=== PATIENT | male | born 1975 | race Hispanic/Latino ===

== ENCOUNTER 2017-07-25 20:30 | Emergency (ER) | payer BC ==
[2017-07-25] MEDS ORDERED: ONDANSETRON ODT 4 MG TAB ONE (21:30)
== END 2017-07-25 22:16 | disposition home or self-care (01) ==
LOC: EDH 20:30
DX: A08.4 Viral intestinal infection, unspecified (principal)

== ENCOUNTER 2017-08-21 17:58 | Emergency (ER) | payer BC ==
[2017-08-21] MEDS ORDERED: METHYLPREDNISOLONE SOD SUCC 125MG/2ML VIAL ONE (18:28)
[2017-08-21] MEDS ORDERED: IPRATROPIUM/ALBUTEROL SULFATE 3 ML SOLUTION IH ONE (18:34)
== END 2017-08-21 19:34 | disposition home or self-care (01) ==
LOC: EDH 17:58
DX: J20.9 Acute bronchitis, unspecified (principal)
CPT/HCPCS: 71046; 87804 ×2; 94640; 96372; 99285; J2930

== ENCOUNTER 2018-09-26 18:30 | Emergency (ER) | payer BC ==
[2018-09-26] MEDS ORDERED: GUAIFENESIN-CODEINE 5 ML SYRUP ONE (19:34)
[2018-09-26] MEDS ORDERED: BENZONATATE 100 MG CAPSULE PO ONE (19:34)
== END 2018-09-26 20:26 | disposition home or self-care (01) ==
LOC: EDH 18:30
DX: J06.9 Acute upper respiratory infection, unspecified (principal); E11.9 Type 2 diabetes mellitus without complications; E78.00 Pure hypercholesterolemia, unspecified
CPT/HCPCS: 71046; 87804

== ENCOUNTER 2019-07-15 18:17 | Emergency (ER) | payer BC, OTHER ==
[2019-07-15 18:34] LABS: APPEARANCE,URINE Cloudy (CLEAR); BILIRUBIN,URINE Negative (NEGATIVE); COLOR,URINE Yellow (YELLOW); GLUCOSE, URINE (UA) 500 mg/dL (NEGATIVE); KETONES,URINE Negative (NEGATIVE); LEUKOCYTE ESTERASE ,URINE Negative (NEGATIVE); NITRATE,URINE Negative (NEGATIVE); OCCULT BLOOD,URINE Large (NEGATIVE); PROTEIN,URINE POS 1+ mg/dL (NEGATIVE)
[2019-07-15] MEDS ORDERED: ONDANSETRON HCL 4 MG/2 ML VIAL ONE (18:42)
[2019-07-15] MEDS ORDERED: KETOROLAC TROMETHAMINE 30MG/ML ONE (18:42)
[2019-07-15 18:46] LABS: BASOPHILS % (AUTO) 0.4 % (0.0-5.0); EOSINOPHILS % (AUTO) 2.4 % (0.0-8.0); HEMATOCRIT 41.5 % (42-54); LYMPHOCYTES % (AUTO) 35.1 % (21.0-51.0); MEAN CORPUSCULAR HGB CONC 34.9 g/dL (32.0-36.0); MEAN CORPUSCULAR VOLUME 88.9 fL (79-99); MONOCYTES % (AUTO) 6.2 % (3.0-13.0); NEUTROPHILS % (AUTO) 55.4 % (40.0-77.0); PLATELET COUNT (AUTO) 171 K/uL (130-400); RED BLOOD CELL COUNT(AUTO) 4.67 MIL/uL (4.50-6.20); WHITE BLOOD COUNT (AUTO) 7.9 K/uL (4.8-10.8)
[2019-07-15 18:57] LABS: POTASSIUM 4.2 mmol/L (3.5-5.1)
[2019-07-15 19:01] LABS: ALBUMIN 4.2 g/dL (3.5-5.0); BILIRUBIN,TOTAL 0.5 mg/dL (0.2-1.0); TOTAL PROTEIN, SERUM 7.5 g/dL (6.0-8.3)
[2019-07-15 19:11] LABS: BACTERIA,URINE Few /HPF (None Seen); MUCUS,URINE Few LPF (None Seen); RBC,URINE 26-50 /HPF (0-1); SQUAMOUS EPITHELIAL CELL,UR 0-2 /HPF (0-2); WBC,URINE 0-1 /HPF (0-1)
[2019-07-15] MEDS ORDERED: MORPHINE SULFATE 4 MG/1ML SYG ONE (20:20)
== END 2019-07-15 21:14 | disposition home or self-care (01) ==
LOC: EDH 18:17
DX: N20.0 Calculus of kidney (principal); N28.89 Other specified disorders of kidney and ureter; R11.2 Nausea with vomiting, unspecified; E11.9 Type 2 diabetes mellitus without complications; E78.00 Pure hypercholesterolemia, unspecified
CPT/HCPCS: 36415; 74176; 80053; 81001; 83690; 85025; 96361; 96374; 96375; 99284; J1885; J2270; J2405

== ENCOUNTER 2019-10-10 22:52 | Emergency (ER) | payer BC ==
[2019-10-10 23:46] LABS: BASOPHILS % (AUTO) 0.6 % (0.0-5.0); EOSINOPHILS % (AUTO) 2.2 % (0.0-8.0); HEMATOCRIT 43.4 % (42-54); LYMPHOCYTES % (AUTO) 37.2 % (21.0-51.0); MEAN CORPUSCULAR HEMOGLOBIN 30.9 pg (27.0-33.0); MEAN CORPUSCULAR HGB CONC 35.5 g/dL (32.0-36.0); MEAN CORPUSCULAR VOLUME 87.1 fL (79-99); MONOCYTES % (AUTO) 7.5 % (3.0-13.0); NEUTROPHILS % (AUTO) 51.8 % (40.0-77.0); PLATELET COUNT (AUTO) 183 K/uL (130-400); RED BLOOD CELL COUNT(AUTO) 4.98 MIL/uL (4.50-6.20); RED CELL DISTRIBUTION WIDTH 12.4 % (11.0-15.5); WHITE BLOOD COUNT (AUTO) 9.4 K/uL (4.8-10.8)
[2019-10-11] LABS: INR 0.87 (0.85-1.15); PARTIAL THROMBOPLASTIN TIME 26.6 SEC (26.3-35.5); POTASSIUM 4.1 mmol/L (3.5-5.1); PROTHROMBIN TIME 9.4 SEC (9.6-11.6)
[2019-10-11 00:05] LABS: ALBUMIN 4.2 g/dL (3.5-5.0); BILIRUBIN,TOTAL 0.4 mg/dL (0.2-1.0); TOTAL PROTEIN, SERUM 8.1 g/dL (6.0-8.3)
== END 2019-10-11 04:27 | disposition home or self-care (01) ==
LOC: EDH 22:52
DX: U07.1 COVID-19 (principal); J20.9 Acute bronchitis, unspecified; E11.9 Type 2 diabetes mellitus without complications; E78.00 Pure hypercholesterolemia, unspecified; Z87.891 Personal history of nicotine dependence
CPT/HCPCS: 36415; 71045; 80053; 82550; 83605; 84484; 85025; 85378; 85610; 85730; 87040; 93005

== ENCOUNTER 2020-02-20 11:38 | Emergency (ER) | payer BC, OTHER ==
[2020-02-20 12:03] LABS: BASOPHILS % (AUTO) 0.3 % (0.0-5.0); EOSINOPHILS % (AUTO) 0.4 % (0.0-8.0); HEMATOCRIT 42.1 % (42-54); LYMPHOCYTES % (AUTO) 13.6 % (21.0-51.0); MEAN CORPUSCULAR HEMOGLOBIN 31.3 pg (27.0-33.0); MEAN CORPUSCULAR HGB CONC 35.4 g/dL (32.0-36.0); MEAN CORPUSCULAR VOLUME 88.4 fL (79-99); MONOCYTES % (AUTO) 7.3 % (3.0-13.0); NEUTROPHILS % (AUTO) 77.9 % (40.0-77.0); PLATELET COUNT (AUTO) 156 K/uL (130-400); RED BLOOD CELL COUNT(AUTO) 4.76 MIL/uL (4.50-6.20); RED CELL DISTRIBUTION WIDTH 12.2 % (11.0-15.5); WHITE BLOOD COUNT (AUTO) 11.6 K/uL (4.8-10.8)
[2020-02-20 12:19] LABS: CREATININE 1.1 mg/dL (0.5-1.5); POTASSIUM 3.5 mmol/L (3.5-5.1)
[2020-02-20 12:24] LABS: ALBUMIN 3.9 g/dL (3.5-5.0); BILIRUBIN,TOTAL 1.4 mg/dL (0.2-1.0); TOTAL PROTEIN, SERUM 8.2 g/dL (6.0-8.3)
[2020-02-20 12:29] LABS: APPEARANCE,URINE Cloudy (CLEAR); BILIRUBIN,URINE Small (NEGATIVE); COLOR,URINE Dark Yellow (YELLOW); GLUCOSE, URINE (UA) >=1000 mg/dL (NEGATIVE); KETONES,URINE 15 mg/dL (NEGATIVE); LEUKOCYTE ESTERASE ,URINE Small (NEGATIVE); NITRATE,URINE Negative (NEGATIVE); OCCULT BLOOD,URINE Large (NEGATIVE); PH,URINE 5.5 (5.0-8.0); PROTEIN,URINE 300 mg/dL (NEGATIVE)
[2020-02-20 12:34] LABS: BACTERIA,URINE Few /HPF (None Seen); MUCUS,URINE Few LPF (None Seen); SQUAMOUS EPITHELIAL CELL,UR 0-2 /HPF (0-2)
[2020-02-20] MEDS ORDERED: 0.9%NACL 1000ML 1,000 ML IV ONE (13:47)
[2020-02-20] MEDS ORDERED: CEFTRIAXONE 1G VIAL ONE (13:48)
[2020-02-20] MEDS ORDERED: PHENAZOPYRIDINE HCL 200 MG TABLET ONE (15:33)
== END 2020-02-20 16:49 | disposition home or self-care (01) ==
LOC: EDH 11:38
DX: N30.00 Acute cystitis without hematuria (principal); E11.65 Type 2 diabetes mellitus with hyperglycemia; R93.422 Abnormal radiologic findings on diagnostic imaging of left kidney; I10 Essential (primary) hypertension; E78.00 Pure hypercholesterolemia, unspecified; Z79.84 Long term (current) use of oral hypoglycemic drugs
CPT/HCPCS: 36415; 74176; 80053; 81001; 83605 ×2; 85025; 87077; 87088; 87186; 96365; 99284; J0696; J7030

== ENCOUNTER 2024-05-28 21:00 | Emergency (ER) | payer OTHER ==
[~2024-05-28] VITALS: Ht 165.1 cm; Wt 90.7 kg
[2024-05-28 21:14] VITALS: BP 134/84; PULSE 85; RESP 19; TEMP 98.4; O2SAT 98
--- NOTE | 2024-05-28 21:26 | ERN ---
ED Note History of Present Illness Stated Complaint: COUGH GENERAL BODY ACHES Chief Complaint: Cough Time Seen by MD: 21:08 Dictation: PATIENT IS A 49-YEAR-OLD MALE COMING IN WITH FLU-LIKE SYMPTOMS TO INCLUDE BODY ACHES, OCCASIONAL PRODUCTIVE COUGH WITH A YELLOW PHLEGM, SORE THROAT WITH PAINFUL SWALLOWING. SINUS CONGESTION ALSO IN FRONTAL HEADACHE. NO NAUSEA VOMITING NO DIARRHEA NO LOSS OF TASTE OR SMELL. STATES HIS WAS DIAGNOSED SEVERAL DAYS AGO WITH COVID-19. Allergies: Coded Allergies: No Known Drug Allergies (Unverified Allergy, Unknown, 09/26/18) Past Medical History Past Medical History: Diabetes-Type II, High Cholesterol Surgical History: None RN Note Reviewed/Agreed w/PFSH: Yes Review of System Dictation CONSTITUTIONAL: NEGATIVE EXCEPT FOR HPI FEVER CHILLS HEAD/FACE: NEGATIVE EXCEPT FOR HPI EENT: NEGATIVE EXCEPT FOR HPI FRONTAL HEADACHE WITH SORE THROAT RESPIRATORY: NEGATIVE EXCEPT FOR HPI PRODUCTIVE COUGH WITH YELLOW PHLEGM GASTROINTESTINAL/ABDOMINAL: NEGATIVE EXCEPT FOR HPI GENITOURINARY: NEGATIVE EXCEPT FOR HPI MUSCULOSKELETAL: NEGATIVE EXCEPT FOR HPI INTEGUMENTARY: NEGATIVE EXCEPT FOR HPI NEUROLOGICAL/PSYCH: NEGATIVE EXCEPT FOR HPI HEMATOLOGIC/LYMPHATIC: NEGATIVE EXCEPT FOR HPI ALL SYSTEMS NEGATIVE, EXCEPT NOTED ABOVE. 13 POINT REVIEW OF SYSTEMS ASSESSED AND ALL NEGATIVE EXCEPT FOR ABOVE. Initial Vital Sign VS Vital Signs Date Time Temp Pulse Resp B/P (MAP) Pulse Ox O2 Delivery O2 Flow Rate FiO2 05/28/24 21:03 98.4 98 19 134/85 98 Room Air 05/28/24 21:14 0 21 Physical Exam Dictation VITAL SIGNS REVIEWED GENERAL APPEARANCE: ALERT, ORIENTED X 3, MILD ACUTE DISTRESS, WELL DEVELOPED, NOURISHED. HEAD AND FACE: NON-TRAUMATIC. EYES: PERRL, PINK CONJUNCTIVAS, EYELID NO TRAUMA, ANTERIOR CHAMBER WITH ARCUS SENILIS. EARS: PINNAS INTACT AND NO SIGNS OF TRAUMA OR ERYTHEMA EAR CANALS CLEAR AND NO DISCHARGE TM NO ERYTHEMA NOSE: NO DISCHARGE, NO BLEEDING. OROPHARYNX: MOUTH NORMAL, TONGUE PINK, PHARYNX CLEAR, MODERATE PHARYNGEAL ERYTHEMA, TONSILS NO EXUDATES, NO ABSCESSES NOTED, MUCOUS MEMBRANE MOIST UVULA MIDLINE, VOICE IS CLEAR NECK: SUPPLE, NON-TENDER, NO THYROMEGALY, NO MASSES, NO JVD, NO BRUITS BREAST:DEFERRED CHEST:NO TENDERNESS, NO CREPITUS, NO PARADOXICAL MOVEMENT, NO RETRACTIONS LUNGS:CLEAR, WELL-VENTILATED, SYMMETRIC, NO RALES, NO WHEEZING, NO RHONCHI, NO STRIDOR, GOOD BREATH SOUNDS BILATERALLY HEART: REGULAR RATE, REGULAR RHYTHM, NO MURMUR, NO GALLOPS VASCULAR: NO PERIPHERAL EDEMA, ABDOMEN: SOFT, POSITIVE BOWEL SOUNDS, NONDISTENDED, NO GUARDING, NONTENDER, NO REBOUND, NO MASSES NO HEPATOMEGALY, NO SPLENOMEGALY, NO GALLEGOS'S SIGN, NO HERNIAS. RECTAL: DEFERRED GENITAL: DEFERRED NEUROLOGICAL: NORMAL SPEECH, MOTOR FUNCTION INTACT, SENSORY FUNCTION INTACT MUSCULOSKELETAL: NECK NONTENDER, FULL RANGE OF MOTION, BACK NONTENDER, FULL RANG E OF MOTION, EXTREMITIES: NONTENDER, FULL RANGE OF MOTION SKIN: COLOR PINK, DRY, NO TURGOR, NO RASH, NO LACERATIONS, NO ABRASIONS, NO CONTUSIONS. LYMPHATIC: DEFERRED Results (Laboratory/Radiology) Laboratory/Radiology Laboratory Tests Test 05/28/24 21:15 Influenza Type A Antigen Negative For Type A Influenza Type B Antigen Negative For Type B SARS-CoV-2 Antigen (Rapid) PRESUMPTIVE NEGATIVE Group A Streptococcus Rapid negative (NEGATIVE) Labs Reviewed?: Yes ED Course ED Course Orders Procedure Category Date Status Time Influenza Type A & B, LAB 05/28/24 Complete Rapid 21:09 Rapid (Group A Strep) LAB 05/28/24 Complete 21:09 Covid19 (Sars Antigen LAB 05/28/24 Complete Rapid) 21:09 Ibuprofen 800 Mg Tab PHA 05/28/24 Complete (Motrin) 21:30 Current Medications Medications (Trade) Dose Ordered Sig/Mari Route PRN Reason Start Time Stop Time Status Last Admin Dose Admin Ibuprofen (moTRIN) 800 mg ONCE ONCE PO 05/28/24 21:30 05/28/24 21:31 DC Vital Signs Date Time Temp Pulse Resp B/P (MAP) Pulse Ox O2 Delivery O2 Flow Rate FiO2 05/28/24 21:14 98.4 85 19 134/84 98 Room Air* 0 21 05/28/24 21:03 98.4 98 19 134/85 98 Room Air 2145/ALL LABS NEGATIVE PATIENT WILL BE TREATED EMPIRICALLY FOR ACUTE PHARYNGITIS UNSPECIFIED PRESCRIBED AZITHROMYCIN 500 Q.DAY FOR SEVEN DAYS TOLD SEE HIS PRIMARY CARE Medical Decision Making MDM MEDICAL DISCHARGE MAKING BASED ON SWABS FOR FLU COVID AND STREP ALL SWABS NEGATIVE TREATED WITH THE AZITHROMYCIN FOR ACUTE PHARYNGITIS UNSPECIFIED TOLD SEE HIS PRIMARY CARE DOCTOR DX & DISP Disposition: Discharge Departure Impression: Primary Impression: Acute pharyngitis, unspecified Additional Impression: Cough Condition: Stable Scripts Benzonatate (Tessalon Perles) 100 Mg Cap 200 MG PO TID for cough, #60 CAP 0 Refills Prov: RANJIT HAHN AUTOMATION CONTROLS SPECIALIST 05/28/24 Azithromycin (Zithromax Tri-Arsalan) 500 Mg Tablet 500 MG PO DAILY for 7 Days, #7 TAB Prov: RANJIT HAHN AUTOMATION CONTROLS SPECIALIST 05/28/24 Additional Instructions: Follow-up with primary care provider in 1 to 2 days. Take medications as directed here in the emergency room. Okay to continue home medications unless otherwise discussed during your visit in the emergency room today. Return to your nearest emergency room if symptoms worsen or if there is no improvement. Call 911 if you need immediate assistance. Take Tylenol or Motrin [id number] as needed and if no contraindications are present. Increase oral hydration. A wound culture or urine culture was ordered here in the emergency room department please follow-up with primary care provider and advise them to get repeat ports from our facility. If you had any Landon wrap/splints that were applied here, please do not remove them until you see your primary care or specialty. Take antibiotics daily as directed until gone. Increase your water intake. Take Tessalon as needed for cough and see your primary care doctor for follow up Referrals: MIKE PAREDES MD (PCP) Time of Disposition: 21:47 I have reviewed the case, and I agree with, Diagnosis and Plan RANJIT HAHN NP May 28, 2024 21:26
[2024-05-28 21:33] LABS: RAPID GROUP A STREP negative (NEGATIVE)
[2024-05-28 21:43] LABS: COVID19 (SARS ANTIGEN RAPID) PRESUMPTIVE NEGATIVE (NEGATIVE); INFLUENZA TYPE A Negative For Type A (NEGATIVE); INFLUENZA TYPE B Negative For Type B (NEGATIVE)
[2024-05-28] MEDS ORDERED: AZIT500T2 PO (21:48)
[2024-05-28] MEDS ORDERED: BENZ-39 PO (21:48)
[2024-05-28] MEDS: ibuPROFEN 800 MG TAB PO ONE (21:58)
== END 2024-05-28 22:04 | disposition home or self-care (01) ==
LOC: EDH 21:00
DX: J02.9 Acute pharyngitis, unspecified (principal); R05.9 Cough, unspecified; E11.9 Type 2 diabetes mellitus without complications; E78.00 Pure hypercholesterolemia, unspecified; Z20.822 Contact with and (suspected) exposure to COVID-19
CPT/HCPCS: 87426; 87804; 87880; 99283

== ENCOUNTER 2024-11-28 14:03 | Emergency (ER) | payer BC, OTHER ==
[~2024-11-28] VITALS: Ht 162.6 cm; Wt 88.9 kg
[~2024-11-28 14:03] MED LIST: AZIT500T2 PO; BENZ-39 PO
--- NOTE | 2024-11-28 15:55 | HMCIMG ---
EXAM: CR right Hand, 3 View. CLINICAL HISTORY: injury COMPARISON: None provided. FINDINGS: BONES: No acute fracture or aggressive appearing osseous lesion. Chronic appearing deformity neck of the fifth metacarpal bone JOINTS: No evidence of dislocation. The joint spaces are normal. SOFT TISSUES: The soft tissues appear within normal limits. No radiopaque foreign body is seen. IMPRESSION: No acute pathology evident. No acute fracture or dislocation. /Anderson
[2024-11-28] MEDS ORDERED: NAPR-1196 PO (16:13)
--- NOTE | 2024-11-28 16:13 | ERN ---
ED Note History of Present Illness Stated Complaint: RIGHT HAND PAIN Chief Complaint: Hand Problem/Injury Time Seen by MD: 14:06 Dictation: 49-year-old male with her right hand pain worse over the past few days patient reports chronic pain but no recent injury. Said he wrapped it for the past few days but has not improved Allergies: Coded Allergies: No Known Drug Allergies (Unverified Allergy, Unknown, 09/26/18) Home Meds Active Scripts Benzonatate (Tessalon Perles) 100 Mg Cap, 200 MG PO TID for cough, #60 CAP 0 Refills Prov:RANJIT HAHN FACILITIES DIRECTOR 05/28/24 Azithromycin (Zithromax Tri-Arsalan) 500 Mg Tablet, 500 MG PO DAILY for 7 Days, #7 TAB Prov:RANJIT HAHN FACILITIES DIRECTOR 05/28/24 Past Medical History Past Medical History: Diabetes-Type II, High Cholesterol Surgical History: None Review of System Dictation Constitutional: Negative for fever,chills, and weight loss Eyes: Negative for injury, pain,redness, and discharge ENT: Negative for injury,pain or swelling Cardiovascular: Negative for chest pain, palpitations, and edema Respiratory: Negative for shortness of breath, cough, and wheezing, Abdomen/GI: Negative for abdominal pain, nausea, vomiting, diarrhea, and constipation Back: Negative for injury and pain : Negative for injury, bleeding and discharge MS/Extremity: Per HPI Skin: Negative for rash, and discoloration Neuro: Negative for headache, weakness, numbness, tingling, and seizure Psych: Negative for suicide ideation, homicidal ideation, and hallucinations Initial Vital Sign VS Vital Signs Date Time Temp Pulse Resp B/P (MAP) Pulse Ox O2 Delivery O2 Flow Rate FiO2 11/28/24 14:04 98.6 91 18 121/85 97 Room Air Physical Exam Dictation General: awake, alert, NAD Head/Face: Normocephalic, atraumatic Eyes: PERRL, EOMI, vision at baseline ENT: oral cavity clear, TMs clear, no signs of infection Neck: Trachea midline, supple, no nuchal rigidity Cardiovascular: RRR, normal S1/S2, No MRGs, no JVD Respiratory: CTAB, no respiratory distress, No rales or wheezes Abdomen: Soft, non-tender, non-distended, normal bowel sounds, no guarding or rebound. Skin: Warm, dry, normal turgor, no rash MS/Extremity: Pulses equal, no cyanosis, neurovascular intact, FROM, right and no signs of infection full range of motion extensor and flexor tendon intact Neuro: COAx4, GCS 15, strength 5/5, CN 2-12 intact, normal cerebellar exam, normal gait, Psych: Normal behavior, mood, and affect normal ED Course ED Course Orders Procedure Category Date Status Time Hand 3+Vws Rt RAD 11/28/24 Resulted 14:18 Ketorolac PHA 11/28/24 Complete Tromethamine 15mg/Ml 15:00 Current Medications Medications (Trade) Dose Ordered Sig/Mari Route PRN Reason Start Time Stop Time Status Last Admin Dose Admin Ketorolac Tromethamine (toRADol) 15 mg ONCE ONCE IM 11/28/24 15:00 11/28/24 15:01 DC Vital Signs Date Time Temp Pulse Resp B/P (MAP) Pulse Ox O2 Delivery O2 Flow Rate FiO2 11/28/24 14:04 98.6 91 18 121/85 97 Room Air Medical Decision Making MDM MDM: Differential diagnosis: Rationale: Tests considered and ordered secondary to shared decision making include: Previous outside records reviewed: Old ER visits. Risk of complication and/or morbidity or mortality of patient management: None Medications-Per medication reconciliation Need for hospitalization: Patient does not meet criteria for hospitalization. Need for emergency major/minor surgery: No There are no social concerns with this patient. Prescription drug management Prescriptions will include symptomatic care Patient's prior external medical records from other ER visits were reviewed by me as indicated. Prior testing and results from previous visits were reviewed. Prior tests were taken into account with medical decision making and resource utilization, independent historian/historians were used to obtain complete medical history. I independently interpreted the test that were performed, results were reviewed by me and considered findings on radiology if ordered. Medical management and examination interpretation discussions were had by me with other qualified healthcare professionals as indicated for the patient's care. 49-year-old with right hand sprain stable for discharge x-ray stable no signs of infection prescriptions given DX & DISP Disposition: Discharge Departure Impression: Primary Impression: Sprain of right hand Condition: Stable Scripts Naproxen (Naproxen) 250 Mg Tablet 250 MG PO BID for 5 Days, #10 TAB Prov: HARPAL HAYS MD 11/28/24 Referrals: MIKE PAREDES MD (PCP) HARPAL HAYS MD Nov 28, 2024 16:13
[2024-11-28 16:20] VITALS: BP 128/65; PULSE 85; RESP 16; TEMP 98.3; O2SAT 98
== END 2024-11-28 16:56 | disposition home or self-care (01) ==
LOC: EDH 14:03
DX: S63.91XA Sprain of unspecified part of right wrist and hand, initial encounter (principal); E11.9 Type 2 diabetes mellitus without complications; E78.00 Pure hypercholesterolemia, unspecified; X58.XXXA Exposure to other specified factors, initial encounter; Y93.89 Activity, other specified; Y92.89 Other specified places as the place of occurrence of the external cause; Y99.8 Other external cause status
CPT/HCPCS: 99284; 73130; 96372; J1885

== ENCOUNTER 2025-02-22 23:35 | Emergency (ER) | payer BC ==
[~2025-02-22] VITALS: Ht 157.5 cm; Wt 90.7 kg
[~2025-02-22 23:35] MED LIST changes: +NAPR-1196 PO
[2025-02-23 00:06] LABS: RAPID GROUP A STREP negative (NEGATIVE)
[2025-02-23 00:08] LABS: SARS-CoV-2, RNA, NAAT NEGATIVE SARS CoV-2 (NEGATIVE)
[2025-02-23 00:13] LABS: INFLUENZA TYPE A Negative For Type A (NEGATIVE); INFLUENZA TYPE B Negative For Type B (NEGATIVE)
--- NOTE | 2025-02-23 00:14 | ERN ---
ED Note History of Present Illness Stated Complaint: FEVER, RUNNY NOSE, COUGH, HEADACHE Chief Complaint: Multiple Complaints Time Seen by MD: 23:41 Time Seen by Midlevel: 23:41 Dictation: The patient is a 49 year history of diabetes, hyperlipidemia who presents to the emergency department with complaints of productive cough, runny nose, nausea onset Wednesday. Patient denies any fevers, chest pain or shortness of breath. Denies any abdominal pain vomiting or diarrhea. Allergies: Coded Allergies: No Known Drug Allergies (Unverified Allergy, Unknown, 09/26/18) Home Meds Active Scripts Naproxen (Naproxen) 250 Mg Tablet, 250 MG PO BID for 5 Days, #10 TAB Prov:HARPAL HAYS MD 11/28/24 Benzonatate (Tessalon Perles) 100 Mg Cap, 200 MG PO TID for cough, #60 CAP 0 Refills Prov:RANJIT HAHNP 05/28/24 Azithromycin (Zithromax Tri-Arsalan) 500 Mg Tablet, 500 MG PO DAILY for 7 Days, #7 TAB Prov:RANJIT HAHN SUPERVISOR LOCOMOTIVE 05/28/24 Past Medical History Past Medical History: Diabetes-Type II, High Cholesterol Surgical History: None RN Note Reviewed/Agreed w/PFSH: Yes Review of System Dictation Constitutional: Negative for fever,chills, and weight loss Eyes: Negative for injury, pain,redness, and discharge ENT: Negative for injury,pain or swelling positive for nasal congestion Cardiovascular: Negative for chest pain, palpitations, and edema Respiratory: Negative for shortness of breath, and wheezing, positive for cough Abdomen/GI: Negative for abdominal pain, vomiting, diarrhea, and constipation positive for nausea Back: Negative for injury and pain : Negative for injury, bleeding and discharge MS/Extremity: Negative for injury and deformity Skin: Negative for rash, and discoloration Neuro: Negative for weakness, numbness, tingling, and seizure positive for headache Psych: Negative for suicide ideation, homicidal ideation, and hallucinations Initial Vital Sign VS Vital Signs Date Time Temp Pulse Resp B/P (MAP) Pulse Ox O2 Delivery O2 Flow Rate FiO2 02/22/25 23:37 97.2 84 20 122/75 97 Room Air 0 02/23/25 01:12 21 Physical Exam Dictation Vital Signs reviewed General Appearance: Alert, oriented x 3, no acute distress, well developed, nourished. Head and Face: non-traumatic. Eyes: PERRL, pink conjunctivas, eyelid no trauma, anterior chamber with arcus senilis. Ears: Pinnas intact and no signs of trauma or erythema ear canals clear and no discharge TM no erythema Nose: No discharge, no bleeding. Oropharynx: Mouth normal, tongue pink. pharynx clear,no erythema, tonsils no exudates, no abscesses noted, mucous membrane moist Neck: Supple, non-tender, no thyromegaly, no masses, no JVD, no bruits Breast:Deferred Chest:No tenderness, no crepitus, no paradoxical movement, no retractions Lungs:Clear, well-ventilated, symmetric, no rales, no wheezing, no rhonchi, no stridor, good breath sounds bilaterally Heart: Regular rate, regular rhythm, no murmur, no gallops Vascular: no peripheral edema, Abdomen: Soft, positive bowel sounds, nondistended, no guarding, nontender, no rebound, no masses no hepatomegaly, no splenomegaly, no Sena's sign, no hernias. Rectal: Deferred Genital: Deferred Neurological: Normal speech, motor function intact, sensory function intact Musculoskeletal: Neck nontender, full range of motion, back nontender, full range of motion, Extremities: nontender, full range of motion Skin: Color pink, dry, no turgor, no rash, no lacerations, no abrasions, no contusions. Lymphatic: Deferred Results (Laboratory/Radiology) Laboratory/Radiology Laboratory Tests Test 02/22/25 23:45 02/23/25 00:18 Influenza Type A Antigen Negative For Type A Influenza Type B Antigen Negative For Type B SARS-CoV-2, RNA, NAAT NEGATIVE SARS CoV-2 Group A Streptococcus Rapid negative (NEGATIVE) White Blood Count 10.4 K/uL (4.8-10.8) Red Blood Count 4.65 MIL/uL (4.50-6.20) Hemoglobin 14.8 g/dL (14.0-18.0) Hematocrit 41.8 % (42-54) L Mean Corpuscular Volume 89.9 fL (79-99) Mean Corpuscular Hemoglobin 31.8 pg (27.0-33.0) Mean Corpuscular Hemoglobin Concent 35.4 g/dL (32.0-36.0) Red Cell Distribution Width 12.3 % (11.0-15.5) Platelet Count 183 K/uL (130-400) Mean Platelet Volume 9.9 fL (7.5-10.5) Immature Granulocyte % (Auto) 0.7 % (0-1) Neutrophils (%) (Auto) 56.2 % (40.0-77.0) Lymphocytes (%) (Auto) 32.6 % (21.0-51.0) Monocytes (%) (Auto) 7.0 % (3.0-13.0) Eosinophils (%) (Auto) 2.7 % (0.0-8.0) Basophils (%) (Auto) 0.8 % (0.0-5.0) Neutrophils # (Auto) 5.8 K/uL (1.8-7.7) Lymphocytes # (Auto) 3.4 K/uL (1.0-4.8) Monocytes # (Auto) 0.7 K/uL (0.1-1.0) Eosinophils # (Auto) 0.28 K/uL (0.00-0.70) Basophils # (Auto) 0.08 K/uL (0.00-0.20) Absolute Immature Granulocyte (auto 0.07 K/uL (0-1) Nucleated Red Blood Cells 0.0 % (0.0-0.19) Sodium Level 139 mmol/L (136-145) Potassium Level 3.9 mmol/L (3.5-5.1) Chloride Level 105 mmol/L (101-111) Carbon Dioxide Level 27 mmol/L (21-32) Blood Urea Nitrogen 10 mg/dL (7-18) Creatinine 0.9 mg/dL (0.5-1.3) Glomerular Filtration Rate Calc 103 mL/min (>90) Random Glucose 219 mg/dL (70-105) H Total Calcium 8.5 mg/dL (8.5-10.1) Troponin I High Sensitivity 7 ng/L (4-75) Labs Reviewed?: Yes EKG: (+) rhythm (Sinus rhythm) EKG Comment: Date:02/23/2025 Time:0007 Ventricular rate:78 ID interval:129 QRS duration:82 QT/QTc:373/426 EKG interpretation: Sinus rhythm Reviewed by ED Attending no STEMI ED Course ED Course Orders Procedure Category Date Status Time Influenza Type A & B, LAB 02/22/25 Complete Rapid 23:42 Covid Rna Naat LAB 02/22/25 Complete 23:42 Rapid (Group A Strep) LAB 02/22/25 Complete 23:42 Cbc With Differential LAB 02/22/25 Complete 23:55 Chest 1vw RAD 02/22/25 Resulted 23:55 12 Lead Ekg Tracing- EKG 02/22/25 Logged Technical 23:55 Troponin I High LAB 02/22/25 Complete Sensitivity 23:55 Basic Metabolic Panel LAB 02/22/25 Complete 23:55 Ondansetron 4mg Inj PHA 02/23/25 Complete (Zofran 4mg Inj) 00:00 Guaifenesin-Codeine PHA 02/23/25 Complete Syrup 5ml (Robitussi 00:00 Acetaminophen 500mg PHA 02/23/25 Complete Tab (Tylenol 500mg T 00:00 0.9%Nacl 1000ml (Ns PHA 02/23/25 Complete 1000ml) 00:00 Current Medications Medications (Trade) Dose Ordered Sig/Mari Route PRN Reason Start Time Stop Time Status Last Admin Dose Admin Acetaminophen (TYLenol 500MG TAB) 1,000 mg ONCE ONCE PO 02/23/25 00:00 02/23/25 00:01 DC 02/23/25 01:12 Guaifenesin/ Codeine Phosphate (RobiTUSSin AC 5 ML SYRUP) 10 ml ONCE ONCE PO 02/23/25 00:00 02/23/25 00:01 DC 02/23/25 01:12 Ondansetron HCl (zoFRAN 4MG INJ) 4 mg ONCE ONCE IVP 02/23/25 00:00 02/23/25 00:01 DC 02/23/25 01:12 Sodium Chloride 1,000 ml @ 0 mls/hr ONCE ONCE IV 02/23/25 00:00 02/23/25 00:01 DC 02/23/25 01:11 Vital Signs Date Time Temp Pulse Resp B/P (MAP) Pulse Ox O2 Delivery O2 Flow Rate FiO2 02/23/25 01:12 97.5 78 18 127/71 97 Room Air* 0 21 02/22/25 23:37 97.2 84 20 122/75 97 Room Air 0 Medical Decision Making MDM The patient is a 49 year history of diabetes, hyperlipidemia who presents to the emergency department with complaints of productive cough, runny nose, nausea onset Wednesday. Patient denies any fevers, chest pain or shortness of breath. Denies any abdominal pain vomiting or diarrhea. Differential diagnosis: URI, pneumonia, dehydration, upper respiratory infection, strep throat Need for hospitalization: Patient does not meet criteria for hospitalization. There are no social concerns with this patient. DX & DISP Disposition: Discharge Departure Impression: Primary Impression: URI (upper respiratory infection) Condition: Stable Additional Instructions: FOLLOW-UP WITH PRIMARY CARE PROVIDER IN 1 TO 2 DAYS. TAKE MEDICATIONS DIRECTED HERE IN THE EMERGENCY ROOM. OKAY TO CONTINUE HOME MEDICATIONS UNLESS OTHERWISE DISCUSSED DURING YOUR VISIT IN THE EMERGENCY ROOM TODAY. RETURN TO YOUR NEAREST EMERGENCY ROOM IF SYMPTOMS WORSEN OR IF THERE IS NO IMPROVEMENT. CALL 911 IF YOU NEED IMMEDIATE ASSISTANCE. TAKE TYLENOL [id number] NEEDED AND IF NO CONTRAINDICATIONS ARE PRESENT. INCREASE ORAL HYDRATION. A WOUND CULTURE OR URINE CULTURE WAS ORDERED HERE IN THE EMERGENCY ROOM DEPARTMENT PLEASE FOLLOW-UP WITH PRIMARY CARE PROVIDER AND ADVISE THEM TO GET REPORTS FROM OUR FACILITY. IF YOU HAD ANY PATRICIA WRAP/SPLINTS THAT WERE APPLIED HERE, PLEASE DO NOT REMOVE THEM UNTIL YOU SEE YOUR PRIMARY CARE OR SPECIALTY. REFERRALS: Referrals: MIKE PAREDES MD (PCP) Time of Disposition: 01:27 JOANIE ELLIOTT Feb 23, 2025 00:14 MICHELLE JONES MD Feb 23, 2025 01:28
[2025-02-23 00:28] LABS: IMMATURE GRANULOCYTE ABSOLUTE 0.07 K/uL (0-1); NUCLEATED RED BLOOD CELLS 0.0 % (0.0-0.19); PLATELET COUNT (AUTO) 183 K/uL (130-400); RED BLOOD CELL COUNT(AUTO) 4.65 MIL/uL (4.50-6.20); RED CELL DISTRIBUTION WIDTH 12.3 % (11.0-15.5); WHITE BLOOD COUNT (AUTO) 10.4 K/uL (4.8-10.8)
[2025-02-23 00:36] LABS: CREATININE 0.9 mg/dL (0.5-1.3); GLOMERULAR FILTR. RATE CALC 103.0 mL/min (>90); GLUCOSE,RANDOM 219.0 mg/dL (70-105); SODIUM SERUM 139.0 mmol/L (136-145); UREA NITROGEN, BLOOD 10.0 mg/dL (7-18)
--- NOTE | 2025-02-23 00:56 | NUR ---
assumed pt care at this time
[2025-02-23] MEDS: 0.9%NACL 1000ML 1,000 ML IV ONE (01:11)
--- NOTE | 2025-02-23 01:25 | HMCIMG ---
EXAM: CR Chest, 1 View. CLINICAL HISTORY: cough COMPARISON: October 11, 2019 FINDINGS: LUNGS: The lungs show no infiltrate or other acute finding. PLEURAL SPACES: No pleural effusion or pneumothorax. MEDIASTINUM: Mild cardiomegaly. BONES: No aggressive appearing osseous lesion seen. IMPRESSION: No acute cardiopulmonary pathology is evident. No significant interval change except for mild progression of cardiomegaly since the prior study. /Tiff
[2025-02-23 01:54] VITALS: BP 116/74; PULSE 72; RESP 16; TEMP 97.9; O2SAT 98
--- NOTE | 2025-02-23 11:07 | EKG ---
[facility] Test Date: 2025-02-23 Test Time: 00:07:46 Pat Name: ARPIT GREGORIO Department: [facility] Room: Gender: M Twist Tester: [id number] : 1975 Requested By: JOANIE ELLIOTT Order Number: [id number] Reading MD: Michelle Crooks Measurements Intervals [place] Rate: 78 P: 48 WI: 129 QRS: -52 QRSD: 82 T: 0 QT: 373 QTc: 426 Interpretive Statements Sinus rhythm LAD, consider left anterior fascicular block Compared to ECG 10/11/2019 03:08:05 Left ventricular hypertrophy no longer present Electronically Signed On 02-26-2025 08:52:57 FLOWER MACHINE OPERATOR by Michelle Crooks Please click the below link to view image of tracing.
== END 2025-02-23 01:55 | disposition home or self-care (01) ==
LOC: EDH 23:35
DX: J06.9 Acute upper respiratory infection, unspecified (principal); E11.9 Type 2 diabetes mellitus without complications; E78.00 Pure hypercholesterolemia, unspecified; Z20.822 Contact with and (suspected) exposure to COVID-19
CPT/HCPCS: 99284; 71045; 87635; 84484; 80048; 85025; 87880; 87804 ×2; 36415; 93005; 96374; J7030; J2405